=== PATIENT | female | born 2000 | race Caucasian/White ===

== ENCOUNTER 2018-08-18 14:55 | Emergency (ER) | payer OTHER ==
[~2018-08-18] VITALS: Ht 167.6 cm; Wt 74.8 kg
--- NOTE | 2018-08-18 15:04 | NUR ---
BIB SELF W C/O R LOWER ABDOMINAL PAIN AND NAUSEA SINCE 10 PM LAST NIGHT. TO ER BED 3, HOOKED TO MONITOR, CHANGED TO GOWN, PROVIDED W WARM BLANKET, AWAITING MD ROSAS
--- NOTE | 2018-08-18 16:37 | NUR ---
PA DEGRASSE AT BEDSIDE FOR EVAL.
[2018-08-18 16:57] LABS: BASOPHILS # (AUTO) 0.1 /CMM (0.0-0.2); BASOPHILS % (AUTO) 0.5 % (0.0-2.0); EOSINOPHILS % (AUTO) 0.4 % (0.0-6.0); HEMATOCRIT 41 % (33-45); HEMOGLOBIN 13.8 g/dL (11.5-14.8); LYMPHOCYTES # (AUTO) 1.8 /CMM (0.8-4.8); LYMPHOCYTES % (AUTO) 16.8 % (20.0-44.0); MEAN CORPUSCULAR HGB CONC 34 g/dl (31.0-36.0); MEAN CORPUSCULAR VOLUME 91 fL (82-100); MONOCYTES # (AUTO) 0.6 /CMM (0.1-1.30); NEUTROPHILS % (AUTO) 76.3 % (43.0-81.0); PLATELET COUNT (AUTO) 272 /CMM (150-450); RED BLOOD CELL COUNT(AUTO) 4.54 MIL/uL (4.0-5.2); WHITE BLOOD COUNT (AUTO) 10.4 K/uL (4.3-11.0)
[2018-08-18] MEDS ORDERED: ONDANSETRON HCL/PF 4 MG/2 ML VIAL IVP ONE (17:00)
[2018-08-18] MEDS ORDERED: MORPHINE SULFATE INJ 2 MG/ML DISP.SYRIN IV ONE (17:00)
[2018-08-18] MEDS ORDERED: IV NS 0.9% 1,000 ML BAG IV ONE (17:00)
[2018-08-18 17:09] LABS: ALBUMIN 4.3 g/dL (3.4-5.0); BILIRUBIN,DIRECT 0.1 mg/dL (0.0-0.2); BILIRUBIN,TOTAL 0.6 mg/dL (0.2-1.0); CALCIUM, SERUM 9.5 mg/dL (8.5-10.1); CREATININE 0.7 mg/dL (0.6-1.3); POTASSIUM 4.5 mmol/L (3.5-5.1); TOTAL PROTEIN, SERUM 7.6 g/dL (6.4-8.2)
[2018-08-18] MEDS ORDERED: ONDANSETRON HCL/PF 4 MG/2 ML VIAL ONE (17:11)
[2018-08-18] MEDS ORDERED: MORPHINE SULFATE INJ 4 MG/ML DISP.SYRIN ONE (17:11)
--- NOTE | 2018-08-18 17:19 | NUR ---
US TECH AT BEDSIDE
[2018-08-18 18:02] LABS: APPEARANCE,URINE Clear (CLEAR); BILIRUBIN,URINE Negative (NEGATIVE); BLOOD, URINE Negative Ery/uL (NEGATIVE); COLOR,URINE Yellow (YELLOW); KETONES,URINE 15 (NEGATIVE); LEUKOCYTE ESTERASE ,URINE Negative (NEGATIVE); NITRITE, URINE Negative (NEGATIVE); PH,URINE 5.5 (5.0-8.0); PROTEIN,URINE Negative (NEGATIVE); UGLUCOSE Negative (NEGATIVE); UROBILINOGEN,URINE 0.2 EU/dL (0.2)
--- NOTE | 2018-08-18 18:57 | NUR ---
IV removed. Catheter intact and site benign. Pressure and 4x4 applied to site. No bleeding noted.Patient discharged to home in stable condition. Written and verbal after care instructions given. Patient verbalizes understanding of instruction.
[2018-08-18 18:58] VITALS: BP 134/87
== END 2018-08-18 18:59 | disposition home or self-care (01) ==
LOC: ER 14:58
DX: N83.291 Other ovarian cyst, right side (principal); N83.8 Other noninflammatory disorders of ovary, fallopian tube and broad ligament; R11.2 Nausea with vomiting, unspecified
CPT/HCPCS: 36415; 76705; 76856; 80048; 80076; 81001; 83690; 84703; 85025; 85730; 96361; 96374; 96375; 99284; J2270; J2405; J7030; 81000-TC

== ENCOUNTER 2018-10-27 21:42 | Emergency (ER) | payer OTHER ==
[~2018-10-27] VITALS: Ht 170.2 cm; Wt 74.8 kg
--- NOTE | 2018-10-27 22:08 | NUR ---
pest control chemical technician at bedside for blood draw.
[2018-10-27] MEDS ORDERED: ONDANSETRON HCL/PF 4 MG/2 ML VIAL ONE ×2 (22:11→23:21)
[2018-10-27] MEDS ORDERED: HYDROMORPHONE 1 MG/1 ML DISP.SYRIN ONE (22:11)
--- NOTE | 2018-10-27 22:26 | NUR ---
pt medicated as ordered for continued RLQ pelvic pain.
[2018-10-27 22:27] LABS: BASOPHILS # (AUTO) 0.1 /CMM (0.0-0.2); BASOPHILS % (AUTO) 0.9 % (0.0-2.0); EOSINOPHILS % (AUTO) 1.6 % (0.0-6.0); HEMATOCRIT 39 % (33-45); HEMOGLOBIN 13.2 g/dL (11.5-14.8); LYMPHOCYTES # (AUTO) 2.4 /CMM (0.8-4.8); LYMPHOCYTES % (AUTO) 32.8 % (20.0-44.0); MEAN CORPUSCULAR HGB CONC 34 g/dl (31.0-36.0); MEAN CORPUSCULAR VOLUME 91 fL (82-100); MONOCYTES # (AUTO) 0.7 /CMM (0.1-1.30); MONOCYTES % (AUTO) 9.4 % (2.0-12.0); NEUTROPHILS # (AUTO) 4.1 /CMM (1.8-8.9); NEUTROPHILS % (AUTO) 55.3 % (43.0-81.0); PLATELET COUNT (AUTO) 271 /CMM (150-450); RED BLOOD CELL COUNT(AUTO) 4.28 MIL/uL (4.0-5.2); WHITE BLOOD COUNT (AUTO) 7.3 K/uL (4.3-11.0)
[2018-10-27] MEDS ORDERED: ONDANSETRON HCL/PF - ER 4 MG/2 ML VIAL IV ONE (22:30)
[2018-10-27] MEDS ORDERED: HYDROMORPHONE 1 MG/1 ML DISP.SYRIN IV ONE (22:30)
--- NOTE | 2018-10-27 22:32 | NUR ---
US tech at bedside for US pelvis.
--- NOTE | 2018-10-27 22:46 | NUR ---
US pelvis complete. pt tolerated procedure well, report no pain to RLQ pelvis when lying still w/ nad noted. pt on continuous pulse-ox w/ monitoring. Awaiting lab & US results.
--- NOTE | 2018-10-27 22:50 | NUR ---
Blood hemolyzed. artificial insemination technician at bedside for redraw.
[2018-10-27 23:33] LABS: CALCIUM, SERUM 9.1 mg/dL (8.5-10.1); CREATININE 0.5 mg/dL (0.6-1.3); POTASSIUM 3.7 mmol/L (3.5-5.1)
[2018-10-27 23:45] LABS: ALBUMIN 4.2 g/dL (3.4-5.0); BILIRUBIN,DIRECT 0.1 mg/dL (0.0-0.2); BILIRUBIN,TOTAL 0.4 mg/dL (0.2-1.0); TOTAL PROTEIN, SERUM 7.7 g/dL (6.4-8.2)
--- NOTE | 2018-10-27 23:46 | NUR ---
IVHL EV occluded. IV removed. Catheter intact and site benign. Pressure and 4x4 applied to site. No bleeding noted. New IVHL EV 20G started, patent & intact.
[2018-10-28] MEDS ORDERED: ONDANSETRON HCL/PF - ER 4 MG/2 ML VIAL IV ONE
--- NOTE | 2018-10-28 | NUR ---
pt continues to feel nauseated, no active vomiting, denies any pain when lying on left side. pt medicated as ordered for nausea, on continuous monitoring. Awaiting CT abd.
--- NOTE | 2018-10-28 00:24 | NUR ---
pt sent to [facility] via [facility].
[2018-10-28] MEDS ORDERED: IV NS 0.9% 250 ML IV ONE (00:27)
[2018-10-28] MEDS ORDERED: IOHEXOL-300 100 ML VIAL IV ONE (00:27)
[2018-10-28] MEDS ORDERED: CT SWABBABLE VALVE TRANS SET 1 EA INFUS.SET MC ONE (00:27)
--- NOTE | 2018-10-28 00:49 | NUR ---
pt back fr CT, resp even & unlabored, nad noted.
[2018-10-28] MEDS ORDERED: HYDROMORPHONE 1 MG/1 ML DISP.SYRIN IV ONE (02:00)
[2018-10-28] MEDS ORDERED: HYDROMORPHONE 1 MG/1 ML DISP.SYRIN ONE (02:10)
--- NOTE | 2018-10-28 02:36 | NUR ---
Dr. South at bedside for update on pt status w/ discharge instructions. IV removed. Catheter intact and site benign. Pressure and 4x4 applied to site. No bleeding noted. Patient discharged to home in stable condition. Written and verbal after care instructions given along w/ prescriptions for pain medication and instructed not to drive while on pain medications, to follow up w/ stamps or coins salesperson. Patient verbalizes understanding of instruction.
[2018-10-28 02:38] VITALS: BP 104/56
== END 2018-10-28 02:39 | disposition home or self-care (01) ==
LOC: ER 22:51
DX: G89.4 Chronic pain syndrome (principal); R10.2 Pelvic and perineal pain
CPT/HCPCS: 36415; 74177; 76856; 80048; 80076; 84702; 85025; 85730; 96374; 96375; 96376; 99284; A4216; J1170 ×2; J2405 ×2; J7050; Q9967